=== PATIENT | male | born 1940 | race Caucasian/White ===

== ENCOUNTER → 2017-10-25 | Day surgery (SDC) | payer OTHER, MEDICARE ==
[~2017-10-25] VITALS: Ht 162.6 cm; Wt 78.9 kg
[~2017-10-25] MED LIST: ASPIRIN EC81 M1 PO; CIPRO500 M1 PO; CRESTOR40 M2 PO; FINASTERIDE5 M1 PO; FOLIC ACID1 M1 PO; INDAPAMIDE1.25 M1 PO; LEVSIN0.125 M1 PO; MAGNESIUM400 M1 PO; PERCOCET 5-3251 EACH PO; PLAVIX75 M1 PO; QUINAPRIL HCL10 M1 PO; TRAMADOL HCL50 M1 PO; VERAPAMIL ER240 M1 PO
--- NOTE | 2017-10-25 16:24 | Operative Report ---
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 Placed in supine position on the cystoscopy table. A timeout was extruded appropriately the patient awake. Drill anesthesia was induced via LMA. He was placed in dorsal lithotomy position. Bimanual rectal exam revealed a mildly enlarged, nonmodular approximately were no other pelvic masses. It was then prepped and draped in usual fashion for cystoscopy. A surgical pause was secured appropriately. 22 Greek cystoscope sheath was initially unable to be placed in the urethra due to narrowing the fossa navicularis. Using sounds this area was dilated to 26 Greek. The 22 Greek cystoscope sheath was then placed into the urethra under direct vision. There was some narrowing in the bulbar urethra but the 22 Greek scope was passed through this area with some difficulty. The prostate was mildly enlarged causing partial bladder construction. Upon entering the bladder cystoscopy was performed. A 4 cm bladder tumor overlying the left trigone. The left ureteral orifice could not be visualized. The right ureteral orifice was normal. The remainder the bladder was normal. The bladder was left full in the cystoscope removed. A 26 Greek resectoscope was then placed into the urethra using the straw hat brim cutter operator. Working element was then placed so that it Could be made to place the resectoscope into the bladder under direct vision. However in the bulbar urethra the resectoscope could not be advanced due to narrowing. The resectoscope was removed and this area was dilated to 24 Greek sounds. Following this the cystoscope was placed in the urethra and a guidewire placed through the urethra into the bladder. Using the rectus vision internal urethrotome near area of the urethra was incised. Multiple attempts were made to do this. After each attempt a further attempt was made to place the resectoscope. Over the resectoscope could not be advanced beyond this narrow area of the urethra. Therefore was decided to avoid attempting to place the resectoscope into place a Jamison catheter and allow this area thoroughly passively with a Jamison in place. Therefore 24 Greek three-way Jamison catheter was placed over the guidewire into the bladder with moderate difficulty. Irrigation fluid drained from the Jamison. A catheter plug was placed on the inflow port. 10 mL was placed in the bone. Patient tolerated the procedure well and was stable condition. Findings: Narrowed urethral bulbar urethra, 4 cm bladder tumor left trigone Discharge Disposition: PACU
== END ==
LOC: STS 00:47
DX: D49.4 Neoplasm of unspecified behavior of bladder (principal); N35.9 Urethral stricture, unspecified; N40.0 Benign prostatic hyperplasia without lower urinary tract symptoms; I25.10 Atherosclerotic heart disease of native coronary artery without angina pectoris; Z87.891 Personal history of nicotine dependence; I10 Essential (primary) hypertension; K21.9 Gastro-esophageal reflux disease without esophagitis; Z86.73 Personal history of transient ischemic attack (TIA), and cerebral infarction without residual deficits; Z79.82 Long term (current) use of aspirin; N32.89 Other specified disorders of bladder; I73.9 Peripheral vascular disease, unspecified
CPT/HCPCS: 87086; J0690; J1100; J2250; J2405